=== PATIENT | female | born 1995 | race Two or more races ===

== ENCOUNTER → 2025-03-16 | Outpatient (REF) | payer OTHER ==
[2025-03-16 15:09] LABS: APPEARANCE, URINE CLEAR (CLEAR); BACTERIA, URINE AUTO NEGATIVE (NEGATIVE); BILIRUBIN, URINE AUTO NEGATIVE (NEGATIVE); BLOOD, URINE BLOOD NEGATIVE (NEGATIVE); GLUCOSE, URINE (UA) AUTO NEGATIVE (NEGATIVE); KETONE, URINE AUTO NEGATIVE (NEGATIVE); LEUKOCYTE ESTERASE, URINE AUTO NEGATIVE (NEGATIVE); NITRITE, URINE AUTO NEGATIVE (NEGATIVE); PROTEIN, URINE AUTO NEGATIVE (NEGATIVE); RBC, URINE AUTO 0 /HPF (0-3); SPECIFIC GRAVITY URINE AUTO 1.005 (1.002-1.035); SQUAMOUS EPITHELIAL CELL UR AU 2 /HPF (0-6); UROBILINOGEN, URINE AUTO 0.2 mg/dL (0.0-2.0); WBC, URINE AUTO 0 /HPF (0-3)
[2025-03-16 15:47] LABS: CREATININE, URINE 37.7 MG/DL
[2025-03-16 15:49] LABS: MALB URINE SIEMENS < 3.0 MG/L
== END ==
LOC: M LAB REF 14:44
PROVIDERS: ATTEND Physician Assistant
DX: I10 Essential (primary) hypertension (principal)

== ENCOUNTER → 2025-03-31 | Outpatient (CLI) | payer OTHER | LOC: M RAD 11:14 | PROVIDERS: ATTEND Nurse Practitioner Family | DX: Z34.82 Encounter for supervision of other normal pregnancy, second trimester (principal) ==

== ENCOUNTER → 2025-04-13 | Outpatient (CLI) | payer OTHER ==
[2025-04-13 14:04] LABS: GLUCOSE CHALLENGE TEST 1 HOUR 95 MG/DL (LESS THAN 140)
[2025-04-13 14:06] LABS: PLATELET COUNT, AUTOMATED 201 10^3/uL (150-450)
[2025-04-13 14:30] LABS: Trichomonas vaginalis (AMP) NOT DETECTED (NEGATIVE)
[2025-04-13 14:32] LABS: HIV 1&2 SCREEN NEGATIVE (NEGATIVE)
[2025-04-13 14:38] LABS: HEPATITIS C VIRUS ABY INDEX 0.03 INDEX (<0.8)
[2025-04-13 14:54] LABS: GC DNA AMPLIFICATION NEGATIVE (NEGATIVE)
== END ==
LOC: M PLALAB 10:34
PROVIDERS: ATTEND Nurse Practitioner Family
DX: Z34.82 Encounter for supervision of other normal pregnancy, second trimester (principal)

== ENCOUNTER → 2025-04-30 | Outpatient (CLI) | payer OTHER | LOC: M WHC 11:42 | PROVIDERS: ATTEND Nurse Practitioner Family | DX: O36.5930 Maternal care for other known or suspected poor fetal growth, third trimester, not applicable or unspecified (principal) ==

== ENCOUNTER → 2025-05-31 | Outpatient (CLI) | payer OTHER | LOC: M PLALAB 11:28 | PROVIDERS: ATTEND Advanced Practice Midwife | DX: Z67.91 Unspecified blood type, Rh negative (principal) ==

== ENCOUNTER → 2025-06-03 | Outpatient (CLI) | payer OTHER | LOC: M WHC 09:55 | PROVIDERS: ATTEND Advanced Practice Midwife | DX: O10.019 Pre-existing essential hypertension complicating pregnancy, unspecified trimester (principal) ==

== ENCOUNTER → 2025-06-18 | Outpatient (CLI) | payer OTHER ==
[2025-06-18 14:07] LABS: PLATELET COUNT, AUTOMATED 183 10^3/uL (150-450)
[2025-06-18 14:10] LABS: LDH LACTATE DEHYDROGENASE 178 U/L (120-246)
[2025-06-18 14:11] LABS: ALT/SGPT 14 U/L (7.0-40); AST/SGOT 20 U/L (<34); CREATININE FOR GFR 0.68 MG/DL (0.55-1.30); GLOMERULAR FILTRATION RATE > 90.0 (>60)
[2025-06-18 14:41] LABS: TOTAL PROTEIN,RANDOM URINE < 6.0 MG/DL (0.0-14.0)
== END ==
LOC: M PLALAB 10:42
PROVIDERS: ATTEND Student in an Organized Health Care Education/Training Program
DX: O10.919 Unspecified pre-existing hypertension complicating pregnancy, unspecified trimester (principal); Z3A.00 Weeks of gestation of pregnancy not specified

== ENCOUNTER → 2025-06-30 | Outpatient (REF) | payer OTHER | LOC: M SFHCWAGY 13:21 | PROVIDERS: ATTEND Obstetrics & Gynecology | DX: Z3A.36 36 weeks gestation of pregnancy (principal) ==